=== PATIENT | female | born 1960 | race Caucasian/White ===

== ENCOUNTER 2017-03-28 12:11 | Inpatient (IN) | payer OTHER, MEDICARE ==
[~2017-03-28] VITALS: Ht 152.4 cm; Wt 40.6 kg
[2017-03-28] VITALS (9 sets, daily range): BP systolic 130–194; BP diastolic 58–101; PULSE 64–74; RESP 18–20; TEMP 96–98.3; O2SAT 94–97
[~2017-03-28 12:11] MED LIST: ADVA500A INH; CARV6.252 PO; DICL75 PO; LISI-363 PO; NITR0.4S SL; TRAM50TA PO; VENTAER INH
--- NOTE | 2017-03-28 12:39 | PD ---
HPI Chief Complaint: Abdominal Pain Time Seen by Provider: 12:38 Travel History International Travel<30 days: No Contact w/Intl Traveler<30days: No Traveled to known affect area: No History of Present Illness HPI 56-year-old female came to the emergency room with 4 days history of epigastric pain. Patient says she has been vomiting as well. She says that the pain has been keeping her up at night and she can take it anymore. She has history of extensive abdominal surgeries in the past including colectomy and reverse colostomy. She seemed uncomfortable. Vital signs were stable. The pain waxes and wanes but is there all throughout the time. Currently her pain is 8 out of 10. No Radiation of the pain. No history of diarrhea. She did have a bowel movement today. FOR[facility]LY [facility] Past Medical History Narrative Medical List of her past medical, surgical, social and family history is reviewed from the nursing note. Arthritis: No Asthma: Yes Heart Rhythm Problems: No Cancer: No Cardiac Catheterization: Yes Cardiovascular Problems: Yes (AICD, ANGINA) High Cholesterol: No Chest Pain: Yes Congestive Heart Failure: No COPD: Yes Cerebrovascular Accident: No Diabetes: No Endocrine: No Gastrointestinal Disorders: No GERD: Yes Genitourinary: No Hiatal Hernia: Yes Hypertension: No Immune Disorder: No Implanted Vascular Access Dvce: Yes Musculoskeletal: Yes (BACK TRAUMA/ PAIN) Neurologic: Yes (MIGRAINES) Psychiatric: No Reproductive: No Respiratory: Yes (ASTHMA) Migraines: Yes Seizures: No Sleep Apnea: Yes Thyroid Disease: No Menopausal: Yes Past Surgical History Abdominal Surgery: Yes (APPY, LAP. DANA, COLON RESECT/ COLOSTOMY) AICD: Yes (AICD 2009, [address] [employer]) Appendectomy: Yes Arteriovenous Shunt: No Body Medical Devices: HARDWARE RIGHT HUMERUS Cardiac Surgery: Yes (AICD) Cholecystectomy: Yes Coronary Artery Bypass Graft: No Coronary Stent: Yes (ONE STENT 06/05) Ear Surgery: No Endocrine Surgery: No Eye Surgery: No Genitourinary Surgery: No Gynecologic Surgery: Yes (TAHBSO) Hysterectomy: Yes Insulin Pump: No Joint Replacement: No Oral Surgery: No Pacemaker: No Thoracic Surgery: No Other Surgery: Yes Social History Alcohol Use: No Tobacco Use: No (quit 2 years ago, smoked 1 ppd for 30 years) Substance Use: No Allergies-Medications (Allergen,Severity, Reaction): Coded Allergies: doxycycline (Unverified Allergy, Severe, 03/28/17) erythromycin base (Unverified Allergy, Severe, 03/28/17) haloperidol (Unverified Allergy, Severe, 03/28/17) minocycline (Unverified Allergy, Severe, 03/28/17) pantoprazole (Unverified Allergy, Severe, Dyspepsia, 03/28/17) ONLY FOR DOSES UNDER 40 MG tigecycline (Unverified Allergy, Severe, 03/28/17) ranolazine (Unverified Adverse Reaction, Severe, severe constipation, 03/28) Comments List of her allergies reviewed from the nursing note. Reported Meds & Prescriptions Reported Meds & Active Scripts Active Reported Ventolin Hfa 18 GM Inh (Albuterol Sulfate) 90 Mcg/Act Aer 1 Puff INH Q4H PRN Fosamax (Alendronate Sodium) 70 Mg Tab Unknown Dose PO Q7D Promethazine (Promethazine HCl) 12.5 Mg Tab 12.5 Mg PO Q4H PRN Tramadol (Tramadol HCl) 50 Mg Tab 50 Mg PO DAILY Lisinopril 20 Mg Tab 20 Mg PO DAILY Carvedilol 3.125 Mg Tab Unknown Dose PO BID Duoneb (Ipratropium-Albuterol Neb) 0.5-2.5 Mg/3 Ml Neb 1 Nebule INH DAILY Advair Diskus Inh (Fluticasone-Salmeterol Inh) 100-50 Mcg/Blist Aer 1 Puff INH BID Rinse mouth after use. Narrative Medication List of her home medications reviewed from the nursing note. Review of Systems Except as stated in HPI: all other systems reviewed are Neg Gastrointestinal: Positive: Nausea, Vomiting, Abdominal Pain Physical Exam Narrative GENERAL: Awake, alert, moderate distress, emaciated SKIN: Focused skin assessment warm/dry. HEAD: Atraumatic. Normocephalic. EYES: Pupils equal and round. No scleral icterus. No injection or drainage. ENT: No nasal bleeding or discharge. Mucous membranes pink and moist. NECK: Trachea midline. No JVD. CARDIOVASCULAR: Regular rate and rhythm. No murmur appreciated. RESPIRATORY: No accessory muscle use. Clear to auscultation. Breath sounds equal bilaterally. GASTROINTESTINAL: Abdomen soft, tender in the epigastric area, nondistended. Tingling bowel sounds. Hepatic and splenic margins not palpable. MUSCULOSKELETAL: No obvious deformities. No clubbing. No cyanosis. No edema. NEUROLOGICAL: Awake and alert. No obvious cranial nerve deficits. Motor grossly within normal limits. Normal speech. PSYCHIATRIC: Appropriate mood and affect; insight and judgment normal. Data Data Last Documented VS Vital Signs Date Time Temp Pulse Resp B/P (MAP) Pulse Ox O2 Delivery O2 Flow Rate FiO2 03/28/17 14:07 67 20 155/65 (95) 94 03/28/17 12:17 98.3 Orders Orders Complete Blood Count With Diff (03/28/17 12:43) Comprehensive Metabolic Panel (03/28/17 12:43) Lipase (03/28/17 12:43) Urinalysis - C+S If Indicated (03/28/17 12:43) Ct Abd/Pel W Iv Contrast(Rout) (03/28/17 12:43) Iv Access Insert/Monitor (03/28/17 12:43) Ecg Monitoring (03/28/17 12:43) Oximetry (03/28/17 12:43) Morphine Inj (Morphine Inj) (03/28/17 12:45) Ondansetron Inj (Zofran Inj) (03/28/17 12:45) Sodium Chlor 0.9% 1000 Ml Inj (Ns 1000 M (03/28/17 12:43) Sodium Chloride 0.9% Flush (Ns Flush) (03/28/17 12:45) Oral Contrast - Adult (03/28/17 12:49) Diatrizoate Liq ( Gastroview Liq) (03/28/17 12:55) Iohexol 350 Inj (Omnipaque 350 Inj) (03/28/17 14:01) Morphine Inj (Morphine Inj) (03/28/17 14:45) Insert Ng Tube (03/28/17 14:50) Lidocaine 2% Jelly (Xylocaine 2% Jelly) (03/28/17 15:30) Admit Order (Ed Use Only) (03/28/17 15:18) Admit To Inpatient (03/28/17 ) Vital Signs (Adult) Q4H (03/28/17 15:17) Activity Oob With Assistance (03/28/17 15:17) [employer] Inspector / Telemetry .CONTINUOUS (03/28/17 15:17) Intake + Output JOYA.QSHIFT (03/28/17 15:17) Diet Npo (03/28/17 Dinner) Sodium Chloride 0.9% Flush (Ns Flush) (03/28/17 15:30) Sodium Chloride 0.9% Flush (Ns Flush) (03/28/17 21:00) Acetaminophen (Tylenol) (03/28/17 15:30) Ondansetron Inj (Zofran Inj) (03/28/17 15:30) Basic Metabolic Panel (Bmp) (03/29/17 06:00) Complete Blood Count With Diff (03/29/17 06:00) Resp Oxygen Armani C Titrat 1-4 L (03/28/17 ) Naloxone Inj (Narcan Inj) (03/28/17 15:30) Morphine Inj (Morphine Inj) (03/28/17 15:30) Consult General Surgery (03/28/17 ) Chest, Single Ap (03/28/17 ) Labs Laboratory Tests Test 03/28/17 12:50 03/28/17 14:25 White Blood Count 7.4 TH/MM3 Red Blood Count 5.17 MIL/MM3 Hemoglobin 15.2 GM/DL Hematocrit 46.0 % Mean Corpuscular Volume 89.0 FL Mean Corpuscular Hemoglobin 29.4 PG Mean Corpuscular Hemoglobin Concent 33.0 % Red Cell Distribution Width 13.4 % Platelet Count 127 TH/MM3 Mean Platelet Volume 8.8 FL Neutrophils (%) (Auto) 58.1 % Lymphocytes (%) (Auto) 26.9 % Monocytes (%) (Auto) 8.1 % Eosinophils (%) (Auto) 5.8 % Basophils (%) (Auto) 1.1 % Neutrophils # (Auto) 4.3 TH/MM3 Lymphocytes # (Auto) 2.0 TH/MM3 Monocytes # (Auto) 0.6 TH/MM3 Eosinophils # (Auto) 0.4 TH/MM3 Basophils # (Auto) 0.1 TH/MM3 CBC Comment DIFF FINAL Differential Comment Blood Urea Nitrogen 14 MG/DL Creatinine 0.83 MG/DL Random Glucose 105 MG/DL Total Protein 7.2 GM/DL Albumin 3.3 GM/DL Calcium Level 8.8 MG/DL Alkaline Phosphatase 100 U/L Aspartate Amino Transf (AST/SGOT) 24 U/L Alanine Aminotransferase (ALT/SGPT) 26 U/L Total Bilirubin 0.3 MG/DL Sodium Level 140 MEQ/L Potassium Level 3.9 MEQ/L Chloride Level 107 MEQ/L Carbon Dioxide Level 27.6 MEQ/L Anion Gap 5 MEQ/L Estimat Glomerular Filtration Rate 71 ML/MIN Lipase 513 U/L Urine Collection Type CLEAN CATCH Urine Color YELLOW Urine Turbidity CLEAR Urine pH 6.5 Urine Specific [place] 1.021 Urine Protein NEG mg/dL Urine Glucose (UA) NEG mg/dL Urine Ketones NEG mg/dL Urine Occult Blood NEG Urine Nitrite NEG Urine Bilirubin NEG Urine Leukocyte Esterase NEG Urine WBC 0-2 /hpf Urine Squamous Epithelial Cells > 8 /hpf Microscopic Urinalysis Comment CULT NOT INDICATED Urine Collection Time 14:25 MDM Medical Decision Making Medical Screen Exam Complete: Yes Emergency Medical Condition: Yes Medical Record Reviewed: Yes Differential Diagnosis Small bowel obstruction, acute cholecystitis, acute gastritis, abdominal pain NOS, acute pancreatitis Narrative Course 2:17 PM blood test results of back and lipase is mildly elevated. Blood test results are otherwise within acceptable limits. Patient was given IV pain medication and fluid. CT scan is done. Awaiting for her to be read by the radiologist. 3:[address] scan shows usually distended stomach which as per the radiologist could be gastroparesis versus gastric outlet obstruction. Patient is not a diabetic. I opinion this seems more like gastric outlet obstruction. I inserted an NG tube and spoke with Dr. Chirinos from colorectal surgery who is covering for Dr. Pérez. I discussed the CT scan with her and as per her this is more of a general surgery territory. I discussed it with Dr. Rae from general surgery who agreed with the treatment and admission. He wants the patient to be admitted under medical service. I discussed with the hospitalist was accepted the case. After I inserted the NG tube chest x-ray has been ordered. Patient tolerated the procedure well. Please refer to my procedure note. Procedures Procedure Narrative Nasogastric tube insertion: Patient was given 2% lidocaine gel into the right nostril. 14 [place] NG tube was inserted by me. Once it had red decreased the desired length air was insufflated to check for placement. Good gush of air was heard in the epigastric region. Chest x-ray has been ordered to confirm placement. Patient tolerated the procedure well. EKG Prior to Arrival: No Physician Communication Physician Communication Dr. Chirinos, Dr. Rae Diagnosis Primary Impression: Abdominal pain Qualified Codes: R10.13 - Epigastric pain Additional Impression: Gastric outlet obstruction Admitting Information Admitting Physician Requests: Admit Adia Liu MD Mar 28, 2017 12:39
[2017-03-28] MEDS ORDERED: CARV3.12 PO (12:41)
[2017-03-28] MEDS ORDERED: VENTAER INH (12:41)
[2017-03-28] MEDS ORDERED: FOSA70TA PO (12:41)
[2017-03-28] MEDS ORDERED: TRAM50TA PO (12:41)
[2017-03-28] MEDS ORDERED: LISI-515 PO (12:41)
[2017-03-28] MEDS ORDERED: PROM12.54 PO (12:41)
[2017-03-28] MEDS ORDERED: ADVA100A INH (12:41)
[2017-03-28] MEDS ORDERED: IPRASOL INH (12:41)
[2017-03-28] MEDS ORDERED: SODIUM CHLOR 0.9% 1000 ML INJ 1,000 ML IV SCH (12:43)
[2017-03-28] MEDS ORDERED: SODIUM CHLORIDE 0.9% FLUSH 10 ML FLUSH IV FLUSH PRN ×2 (12:45→15:30)
[2017-03-28] MEDS ORDERED: ONDANSETRON HCL 4 MG/2 ML VIAL IVP ONE (12:45)
[2017-03-28] MEDS ORDERED: MORPHINE SULFATE 4 MG/ML INJ IV PUSH ONE ×2 (12:45→14:45)
[2017-03-28] MEDS ORDERED: DIATRIZOATE MEGLUM/DIATRIZOATE SOD 9 ML CUP ONE (12:55)
[2017-03-28 13:00] LABS: AUTOMATED NEUTROPHIL # 4.3 TH/MM3 (1.8-7.7); BASOPHIL # 0.1 TH/MM3 (0-0.2); BASOPHIL % 1.1 % (0.0-2.0); EOSINOPHIL # 0.4 TH/MM3 (0-0.4); EOSINOPHIL % 5.8 % (0.0-4.0); HEMO FLAGS DIFF FINAL; LYMPH % 26.9 % (9.0-44.0); MEAN CORPUSCULAR HEMOGLOBIN 29.4 PG (27.0-34.0); MONO % 8.1 % (0.0-8.0); NEUT % 58.1 % (16.0-70.0); PLATELET COUNT 127 TH/MM3 (150-450); RED BLOOD COUNT 5.17 MIL/MM3 (4.00-5.30); RED CELL DISTRIBUTION WIDTH 13.4 % (11.6-17.2); WHITE BLOOD COUNT 7.4 TH/MM3 (4.0-11.0)
[2017-03-28 13:12] LABS: CHLORIDE 107 MEQ/L (98-107); POTASSIUM 3.9 MEQ/L (3.5-5.1); SODIUM (NA) 140 MEQ/L (136-145)
[2017-03-28 13:16] LABS: ANION GAP 5 MEQ/L (5-15); BICARBONATE 27.6 MEQ/L (21.0-32.0); BLOOD UREA NITROGEN 14 MG/DL (7-18)
[2017-03-28 13:19] LABS: ALT (GPT) 26 U/L (10-53); AST (GOT) 24 U/L (15-37); GLOMERULAR FILTRATION RATE 71 ML/MIN (>89)
[2017-03-28 13:20] LABS: TOTAL BILIRUBIN ADULT 0.3 MG/DL (0.2-1.0)
[2017-03-28 13:22] LABS: ALKALINE PHOSPHATASE 100 U/L (45-117)
[2017-03-28] MEDS ORDERED: IOHEXOL 350 MG/ML 10 ML VIAL (for RAD DIAG) IVCONTRAST ONE (14:01)
--- NOTE | 2017-03-28 14:41 | RADRPT ---
EXAM DATE/TIME: 03/28/2017 13:55 [facility] COMPARISON: CT ABDOMEN & PELVIS W CONTRAST, January 21, 2013, 20:13. INDICATIONS : Mid abdominal pain. IV CONTRAST: 75 cc Omnipaque 350 (iohexol) IV ORAL CONTRAST: Prescribed oral contrast ingested. RADIATION DOSE: 4.42 CTDIvol (mGy) MEDICAL HISTORY : Cardiovascular disease. Chronic obstructive pulmonary disease. Gastroesophageal reflux disease. SURGICAL HISTORY : Coronary artery stent. Appendectomy.Colostomy.Cholecystectomy. Hysterectomy. Pacemaker. ENCOUNTER: Initial ACUITY: 3 days PAIN SCALE: 6/10 LOCATION: abdomen TECHNIQUE: Volumetric scanning of the abdomen and pelvis was performed. Using automated exposure control and ad justment of the mA and/or kV according to patient size, radiation dose was kept as low as reasonably achievable to obtain optimal diagnostic quality images. DICOM format image data is available electro nically for review and comparison. FINDINGS: LOWER LUNGS: The visualized lower lungs are clear. LIVER: Homogeneous density without lesion. There is no dilation of the biliary tree. Gallbladder is surgica lly absent. SPLEEN: Normal size without lesion. PANCREAS: Within normal limits. KIDNEYS: Kidneys is asymmetrical enhancement and are symmetrical in size. Redemonstration of a small left supe rior pole renal cyst. No radiopaque renal calculi or hydronephrosis. ADRENAL GLANDS: Within normal limits. VASCULAR: Moderate to severe mixed distal aortic plaque with resultant moderate to severe distal aortic stenosi s. The iliac arteries are very small in caliber bilaterally. Celiac and SMA are grossly patent. BOWEL/MESENTERY: Moderately distended fluid-filled J-shaped stomach extending to the duodenal bulb. No definitive mass is noted at the gastric outlet. Bowel otherwise appears unremarkable with surgical staple line noted near the rectum. ABDOMINAL WALL: Within normal limits. RETROPERITONEUM: There is no lymphadenopathy. BLADDER: No wall thickening or mass. REPRODUCTIVE: Uterus is surgically absent. INGUINAL: There is no lymphadenopathy or hernia. MUSCULOSKELETAL: Within normal limits for patient age. CONCLUSION: 1. Moderately distended fluid-filled J-shaped stomach without definitive CT evidence for significant focal mass. Ingested oral contrast does extend to the distal small bowel. Differential considerations include gastroparesis versus partial gastric outlet obstruction. 2. Moderate to severe mixed distal aortic plaque with resultant moderate to severe distal aortic sten osis. Iliac arteries are very small in caliber bilaterally. 3. Otherwise, no acute CT abnormality or significant interval change from prior exam. Stable ancillar y findings, as above. Maldonado Zambrano MD on March 28, 2017 at 14:30 Board Certified Radiologist. This report was verified electronically.
[2017-03-28 14:45] LABS: BLOOD, URINE NEG (NEG); GLUCOSE,URINE NEG (NEG); KETONE, URINE NEG (NEG); NITRITE,URINE NEG (NEG); PH, URINE 6.5 (5.0-8.5)
[2017-03-28 14:47] LABS: METHOD OF COLLECTION CLEAN CATCH; URINE COLOR YELLOW (YELLW/STRAW)
[2017-03-28 14:55] LABS: COMMENT (UR) CULT NOT INDICATED; CULTURE IF INDICATED CULT NOT INDICATED; SQUAMOUS EPITHELIAL CELL URINE > 8 /hpf (0-5); WBC, URINE 0-2 /hpf (0-5)
[2017-03-28] MEDS ORDERED: ACETAMINOPHEN 325 MG TAB PO PRN (15:30)
[2017-03-28] MEDS ORDERED: NALOXONE HCL 0.4 MG/ML AMP IV PUSH PRN (15:30)
[2017-03-28] MEDS ORDERED: LIDOCAINE 2% JELLY 30 ML TUBE TOPICAL ONE (15:30)
--- NOTE | 2017-03-28 16:10 | RADRPT ---
EXAM DATE/TIME: 03/28/2017 15:43 [facility] COMPARISON: CHEST SINGLE AP, January 21, 2013, 7:42. INDICATIONS : Mid upper abdomen, lower chest pain, post NG tube MEDICAL HISTORY : Chronic obstructive pulmonary disease. Cardiovascular disease. SURGICAL HISTORY : Pacemaker. ENCOUNTER: Subsequent ACUITY: 4 - 6 days PAIN SCORE: 10/10 LOCATION: Bilateral lower chest middle FINDINGS: Stable multilead AICD in place. Nasogastric catheter with tip in the stomach. Lungs are hyper aerated with mild interstitial prominence. No new focal pleural or parenchymal opacities. Cardiac mediastina l contours are within normal limits. Left humeral intramedullary silvino. Remainder of the exam is unchan ged. CONCLUSION: 1. NGT in the stomach. 2. Changes of obstructive pulmonary disease without acute abnormality. Maldonado Zambrano MD on March 28, 2017 at 16:06 Board Certified Radiologist. This report was verified electronically.
[2017-03-28] MEDS: SODIUM CHLOR 0.9% 1000 ML INJ 1,000 ML IV SCH (18:52)
[2017-03-28] MEDS: SODIUM CHLORIDE 0.9% FLUSH 10 ML FLUSH IV FLUSH SCH (20:17)
[2017-03-28] MEDS: MORPHINE SULFATE 4 MG/ML INJ IV PUSH PRN (20:29)
[2017-03-29] VITALS (8 sets, daily range): BP systolic 127–154; BP diastolic 61–76; PULSE 59–72; RESP 15–20; TEMP 96.1–97.2; O2SAT 91–96
[2017-03-29] MEDS: SODIUM CHLOR 0.9% 1000 ML INJ 1,000 ML IV SCH ×3 (03:21→23:16)
[2017-03-29 06:46] LABS: BASOPHIL % 0.3 % (0.0-2.0); EOSINOPHIL # 0.4 TH/MM3 (0-0.4); EOSINOPHIL % 5.1 % (0.0-4.0); HEMATOCRIT 44.8 % (35.0-46.0); LYMPH % 17.9 % (9.0-44.0); LYMPHOCYTE # 1.3 TH/MM3 (1.0-4.8); MEAN CELL VOLUME 89.4 FL (80.0-100.0); MEAN CORPUSCULAR HEMOGLOBIN 29.7 PG (27.0-34.0); MEAN CORPUSCULAR HGB CONC 33.2 % (32.0-36.0); MONO % 8.9 % (0.0-8.0); NEUT % 67.8 % (16.0-70.0); PLATELET COUNT 92 TH/MM3 (150-450); RED BLOOD COUNT 5.01 MIL/MM3 (4.00-5.30); RED CELL DISTRIBUTION WIDTH 13.2 % (11.6-17.2); WHITE BLOOD COUNT 7.4 TH/MM3 (4.0-11.0)
[2017-03-29 06:49] LABS: HEMO FLAGS AUTO DIFF
[2017-03-29 06:52] LABS: POTASSIUM 3.7 MEQ/L (3.5-5.1)
--- NOTE | 2017-03-29 06:52 | RADRPT ---
EXAM DATE/TIME: 03/29/2017 06:15 [facility] COMPARISON: CT ABDOMEN & PELVIS W CONTRAST, March 28, 2017, 13:55. INDICATIONS : Distention. MEDICAL HISTORY : Cardiovascular disease. Chronic obstructive pulmonary disease. Gastroesophageal reflux disease. SURGICAL HISTORY : Appendectomy. Colostomy. Cholecystectomy. Hysterectomy. ENCOUNTER: Subsequent ACUITY: 2 days PAIN SCORE: 4/10 LOCATION: abdomen, all quadrants. FINDINGS: A single AP supine view of the abdomen and pelvis was obtained and demonstrates a nasogastric tube in place with the tip projected over the proximal stomach. There are surgical clips in the right upper quadrant consistent with prior cholecystectomy. Oral contrast from the CT is now noted in the colon. This is nondistended. There is no evidence of free air or mass effect on this supine study. The bony structures remain intact. The lung bases appear clear and overpenetrated. CONCLUSION: 1. Contrast is now noted in the colon excluding complete or high-grade small bowel obstruction. 2. No evidence of free air. Status post cholecystectomy. 3. Nelson Cantor MD on March 29, 2017 at 6:48 Board Certified Radiologist. This report was verified electronically.
[2017-03-29 07:00] LABS: BICARBONATE 23.8 MEQ/L (21.0-32.0)
[2017-03-29 07:16] LABS: SCAN/DIFF AUTO DIFF CONFIRMED
[2017-03-29] MEDS: SODIUM CHLORIDE 0.9% FLUSH 10 ML FLUSH IV FLUSH SCH ×2 (08:15→21:00)
[2017-03-29] MEDS: ONDANSETRON HCL 4 MG/2 ML VIAL IVP PRN (08:26)
[2017-03-29] MEDS: MORPHINE SULFATE 4 MG/ML INJ IV PUSH PRN ×2 (08:26→20:19)
[2017-03-29] MEDS ORDERED: BENZOCAINE 6 MG/MENTHOL 10 MG LOZENGE BUCCAL PRN (08:30)
--- NOTE | 2017-03-29 09:50 | PD.CONS ---
cc: Marquise Rae MD HPI Service General Surgery Consult Requested By Dr. Liu Reason for Consult Gastric outlet obstruction Primary Care Physician Jhonathan Stauffer MD History of Present Illness This is a 56 year old female with a past medical history of asthma, cardiac catheterization,migraines, insomnia, shoulder injury and colon resection by Dr. Pérez. The patient started having epigastric pain with associated nausea and vomiting about 4 days prior to arrival to the ED. A CT abdomen pelvis was obtained which showed a distended stomach with a question of gastroparesis or a partial gastric outlet obstruction. In the ED, an NGT was placed to LIWS with minimal output but relief of nausea. A General Surgery consultation has been requested. Review of Systems Constitutional: DENIES: Fever, Chills Endocrine: DENIES: Polydipsia, Polyuria, Polyphagia Eyes: DENIES: Eye inflammation Respiratory: DENIES: Cough Cardiovascular: DENIES: Chest pain Gastrointestinal: COMPLAINS OF: Abdominal pain, Nausea, Vomiting Genitourinary: DENIES: Urinary frequency Musculoskeletal: DENIES: Joint pain Integumentary: DENIES: Abnormal pigmentation Hematologic/lymphatic: DENIES: Bruising Immunologic/allergic: DENIES: Eczema Neurologic: DENIES: Abnormal gait, Headache Psychiatric: DENIES: Confusion, Mood changes, Depression Past Family Social History Past Medical History Asthma Cardiac catheterization migraines insomnia shoulder injury Sterkel ulcer Past Surgical History AICD Appendectomy laparoscopic cholecystectomy colon resection with colostomy for Sterkel ulcer RIGHT hummers repair Reported Medications Promethazine DuoNeb Ventolin Coreg Lisinopril Tramadol Advair Fosamax Allergies: Coded Allergies: doxycycline (Unverified Allergy, Severe, 03/28/17) erythromycin base (Unverified Allergy, Severe, 03/28/17) haloperidol (Unverified Allergy, Severe, 03/28/17) minocycline (Unverified Allergy, Severe, 03/28/17) pantoprazole (Unverified Allergy, Severe, Dyspepsia, 03/28/17) ONLY FOR DOSES UNDER 40 MG tigecycline (Unverified Allergy, Severe, 03/28/17) ranolazine (Unverified Adverse Reaction, Severe, severe constipation, 03/28) Active Ordered Medications Current Medications Medications (Trade) Dose Ordered Sig/Jarocho Route Start Time Stop Time Status Last Admin (NS Flush) 2 ml UNSCH PRN IV FLUSH 03/28/17 15:30 (NS Flush) 2 ml BID IV FLUSH 03/28/17 21:00 (Tylenol) 650 mg Q4H PRN PO 03/28/17 15:30 (Zofran Inj) 4 mg Q6H PRN IVP 03/28/17 15:30 03/29/17 08:26 (Narcan Inj) 0.4 mg UNSCH PRN IV PUSH 03/28/17 15:30 (Morphine Inj) 4 mg Q15M PRN IV PUSH 03/28/17 15:30 03/29/17 08:26 Sodium Chloride 1,000 ml @ 100 mls/hr Q10H IV 03/28/17 16:00 03/29/17 03:21 (Chloraseptic Carolann) 1 lozenge UNSCH PRN BUCCAL 03/29/17 08:30 Family History Noncontributory Social History Denies tobacco use Denies ETOH use Denies illicit drug use Physical Exam Vital Signs Vital Signs Date Time Temp Pulse Resp B/P (MAP) Pulse Ox O2 Delivery O2 Flow Rate FiO2 03/29/17 09:00 96.4 67 15 137/76 (96) 96 03/29/17 08:00 59 03/29/17 08:00 96 21 03/29/17 04:00 96.5 72 20 132/61 (84) 94 03/29/17 00:00 97.2 67 20 129/62 (84) 91 03/28/17 20:50 94 21 03/28/17 20:00 96.0 66 20 161/87 (111) 95 03/28/17 20:00 64 03/28/17 18:09 97 03/28/17 16:45 96.5 69 18 154/101 (118) 97 03/28/17 16:44 03/28/17 15:33 66 20 194/89 (124) 97 03/28/17 14:07 67 20 155/65 (95) 94 03/28/17 13:04 68 20 130/58 (82) 95 03/28/17 12:53 96 03/28/17 12:17 98.3 74 20 169/72 (104 96 Physical Exam GENERAL: Thin 56 year old female resting in bed in no acute distress. SKIN: Warm and dry. HEAD: Atraumatic. Normocephalic. EYES: Pupils equal and round. No scleral icterus. No injection or drainage. ENT: No nasal bleeding or discharge. Mucous membranes pink and moist. NECK: Trachea midline. CARDIOVASCULAR: Regular rate and rhythm. RESPIRATORY: No accessory muscle use. Clear to auscultation. Breath sounds equal bilaterally. GASTROINTESTINAL: Abdomen soft, non-tender, nondistended. Abdomen is flat. Multiple well healed scars on abdomen. No obvious hernias. MUSCULOSKELETAL: Extremities without clubbing, cyanosis, or edema. No obvious deformities. NEUROLOGICAL: Awake and alert. No obvious cranial nerve deficits. Motor grossly within normal limits. Five out of 5 muscle strength in the arms and legs. Normal speech. PSYCHIATRIC: Appropriate mood and affect; insight and judgment normal. Laboratory Laboratory Tests Test 03/28/17 12:50 03/28/17 14:25 03/29/17 05:50 White Blood Count 7.4 7.4 Red Blood Count 5.17 5.01 Hemoglobin 15.2 14.9 Hematocrit 46.0 44.8 Mean Corpuscular Volume 89.0 89.4 Mean Corpuscular Hemoglobin 29.4 29.7 Mean Corpuscular Hemoglobin Concent 33.0 33.2 Red Cell Distribution Width 13.4 13.2 Platelet Count 127 92 Mean Platelet Volume 8.8 8.7 Neutrophils (%) (Auto) 58.1 67.8 Lymphocytes (%) (Auto) 26.9 17.9 Monocytes (%) (Auto) 8.1 8.9 Eosinophils (%) (Auto) 5.8 5.1 Basophils (%) (Auto) 1.1 0.3 Neutrophils # (Auto) 4.3 5.0 Lymphocytes # (Auto) 2.0 1.3 Monocytes # (Auto) 0.6 0.7 Eosinophils # (Auto) 0.4 0.4 Basophils # (Auto) 0.1 0.0 CBC Comment DIFF FINAL AUTO DIFF Differential Comment AUTO DIFF CONFIRMED Blood Urea Nitrogen 14 8 Creatinine 0.83 0.58 Random Glucose 105 92 Total Protein 7.2 Albumin 3.3 Calcium Level 8.8 7.8 Alkaline Phosphatase 100 Aspartate Amino Transf (AST/SGOT) 24 Alanine Aminotransferase (ALT/SGPT) 26 Total Bilirubin 0.3 Sodium Level 140 142 Potassium Level 3.9 3.7 Chloride Level 107 111 Carbon Dioxide Level 27.6 23.8 Anion Gap 5 7 Estimat Glomerular Filtration Rate 71 107 Lipase 513 Urine Collection Type CLEAN CATCH Urine Color YELLOW Urine Turbidity CLEAR Urine pH 6.5 Urine Specific [place] 1.021 Urine Protein NEG Urine Glucose (UA) NEG Urine Ketones NEG Urine Occult Blood NEG Urine Nitrite NEG Urine Bilirubin NEG Urine Leukocyte Esterase NEG Urine WBC 0-2 Urine Squamous Epithelial Cells > 8 Microscopic Urinalysis Comment CULT NOT INDICATED Urine Collection Time 14:25 Result Diagram: 03/29/17 0550 03/29/17 0550 Imaging Last 48 hours Impressions Abdomen X-Ray 03/29/17 0600 Signed Impressions: Service Date/Time: Wednesday, March 29, 2017 06:15 - CONCLUSION: 1. Contrast is now noted in the colon excluding complete or high-grade small bowel obstruction. 2. No evidence of free air. Status post cholecystectomy. 3. Nelson Cantor MD Abdomen/Pelvis CT 03/28/17 1243 Signed Impressions: Service Date/Time: Tuesday, March 28, 2017 13:55 - CONCLUSION: 1. Moderately distended fluid-filled J-shaped stomach without definitive CT evidence for significant focal mass. Ingested oral contrast does extend to the distal small bowel. Differential considerations include gastroparesis versus partial gastric outlet obstruction. 2. Moderate to severe mixed distal aortic plaque with resultant moderate to severe distal aortic stenosis. Iliac arteries are very small in caliber bilaterally. 3. Otherwise, no acute CT abnormality or significant interval change from prior exam. Stable ancillary findings, as above. Maldonado Zambrano MD Chest X-Ray 03/28/17 0000 Signed Impressions: Service Date/Time: Tuesday, March 28, 2017 15:43 - CONCLUSION: 1. NGT in the stomach. 2. Changes of obstructive pulmonary disease without acute abnormality. Maldonado Zambrano MD Assessment and Plan Assessment and Plan 56 year old female with abdominal pain, nausea and vomiting; CT abdomen/pelvis suggestive of partial gastric outlet obstruction -Recommend GI consult for possible EGD -Clamp NGT; check residuals -PPI BID -KUB shows contrast through to the colon -Thank you for this consult; We will continue to follow Discussed Condition With Erica Lopez Dr., Ms. Mar 29, 2017 09:50
--- NOTE | 2017-03-29 12:26 | HHI.HP ---
HPI Service [facility] Primary Care Physician Jhonathan Stauffer MD Admission Diagnosis Gastric outlet obstruction, abdominal pain Diagnoses: (1) Gastric outlet obstruction (2) Abdominal pain Chief Complaint: Abdominal pain Constipation Travel History International Travel<30 Days: No Contact w/Intl Traveler <30 Da: No Traveled to Known Affected Are: No History of Present Illness Written by Martha Jones, acting as scribe for Dr. Ross on 03/29/17 at 12:08. Ms. Qureshi is a 56-year-old female patient with a known medical history of asthma , history of colectomy and reverse colostomy who presented to the ED with complaints of abdominal pain. Patient states that the pain started roughly 4 days ago that was located in her epigastric area, severity was 8/10, with associated nausea and vomiting. Does admit to subjective fevers and chills. Last BM was 1 week ago. States she suffers from chronic constipation. Denies any recent diarrhea. Denies any hematochezia. Does follow with Dr. Pérez, has previously underwent a colectomy and reverse colostomy due to Sterkal ulcer. Does not have a instrumentation designer she follows with. CT abdomen was performed in the ED showing distended stomach. General surgery and GI have been consulted , appreciate input. Review of Systems Constitutional: COMPLAINS OF: Fever, Chills Respiratory: DENIES: Cough Cardiovascular: DENIES: Chest pain Gastrointestinal: COMPLAINS OF: Abdominal pain, Constipation, Nausea, Vomiting , DENIES: Diarrhea Hematologic/lymphatic: DENIES: Bruising Psychiatric: COMPLAINS OF: Anxiety Except as stated in HPI: all other systems reviewed are Neg Past Family Social History Past Medical History Asthma CAD with AICD placement GERD History of bowel obstruction with colectomy and reverse colostomy Past Surgical History History of bowel obstruction with colectomy and reverse colostomy Appendectomy Right humerus hardware Cholecystectomy Hysterectomy Reported Medications Reported Meds & Active Scripts Active Reported Ventolin Hfa 18 GM Inh (Albuterol Sulfate) 90 Mcg/Act Aer 1 Puff INH Q4H PRN Fosamax (Alendronate Sodium) 70 Mg Tab Unknown Dose PO Q7D Promethazine (Promethazine HCl) 12.5 Mg Tab 12.5 Mg PO Q4H PRN Tramadol (Tramadol HCl) 50 Mg Tab 50 Mg PO DAILY Lisinopril 20 Mg Tab 20 Mg PO DAILY Carvedilol 3.125 Mg Tab Unknown Dose PO BID Duoneb (Ipratropium-Albuterol Neb) 0.5-2.5 Mg/3 Ml Neb 1 Nebule INH DAILY Advair Diskus Inh (Fluticasone-Salmeterol Inh) 100-50 Mcg/Blist Aer 1 Puff INH BID Rinse mouth after use. Allergies: Coded Allergies: doxycycline (Unverified Allergy, Severe, 03/28/17) erythromycin base (Unverified Allergy, Severe, 03/28/17) haloperidol (Unverified Allergy, Severe, 03/28/17) minocycline (Unverified Allergy, Severe, 03/28/17) pantoprazole (Unverified Allergy, Severe, Dyspepsia, 03/28/17) ONLY FOR DOSES UNDER 40 MG tigecycline (Unverified Allergy, Severe, 03/28/17) ranolazine (Unverified Adverse Reaction, Severe, severe constipation, 03/28) Active Ordered Medications Current Medications Medications (Trade) Dose Ordered Sig/Jarocho Route Start Time Stop Time Status Last Admin (NS Flush) 2 ml UNSCH PRN IV FLUSH 03/28/17 15:30 (NS Flush) 2 ml BID IV FLUSH 03/28/17 21:00 (Tylenol) 650 mg Q4H PRN PO 03/28/17 15:30 (Zofran Inj) 4 mg Q6H PRN IVP 03/28/17 15:30 03/29/17 08:26 (Narcan Inj) 0.4 mg UNSCH PRN IV PUSH 03/28/17 15:30 (Morphine Inj) 4 mg Q15M PRN IV PUSH 03/28/17 15:30 03/29/17 08:26 Sodium Chloride 1,000 ml @ 100 mls/hr Q10H IV 03/28/17 16:00 03/29/17 03:21 (Chloraseptic Carolann) 1 lozenge UNSCH PRN BUCCAL 03/29/17 08:30 Family History Denies any significant family medical history. Social History Denies any current tobacco, alcohol or illicit drug use. Physical Exam Vital Signs Vital Signs Date Time Temp Pulse Resp B/P (MAP) Pulse Ox O2 Delivery O2 Flow Rate FiO2 03/29/17 09:00 96.4 67 15 137/76 (96) 96 03/29/17 08:00 59 03/29/17 08:00 96 21 03/29/17 04:00 96.5 72 20 132/61 (84) 94 03/29/17 00:00 97.2 67 20 129/62 (84) 91 03/28/17 20:50 94 21 03/28/17 20:00 96.0 66 20 161/87 (111) 95 03/28/17 20:00 64 03/28/17 18:09 97 03/28/17 16:45 96.5 69 18 154/101 (118) 97 03/28/17 16:44 03/28/17 15:33 66 20 194/89 (124) 97 03/28/17 14:07 67 20 155/65 (95) 94 03/28/17 13:04 68 20 130/58 (82) 95 03/28/17 12:53 96 03/28/17 12:17 98.3 74 20 169/72 (104) 96 Physical Exam GENERAL: This is a well-developed, thin appearing female patient, sitting up in bed in no apparent distress. SKIN: No rashes, ecchymoses or lesions. Warm and dry. HEENT: Atraumatic. Normocephalic. Pupils equal round and reactive. Extraocular motions intact. No scleral icterus. No injection or drainage. Nose without bleeding. Throat without erythema, tonsillar hypertrophy or exudate. Uvula midline. Airway patent. NECK: Trachea midline. No JVD. Supple. CARDIOVASCULAR: Regular rate and rhythm without murmurs, gallops, or rubs. RESPIRATORY: Clear to auscultation. Breath sounds equal bilaterally. No wheezes , rales, or rhonchi. GASTROINTESTINAL: Abdomen soft, non-tender, nondistended. No guarding. NGT in place and clamped. Active BS x 4 q. MUSCULOSKELETAL: Extremities without clubbing, cyanosis, or edema. No joint tenderness, effusion, or edema noted NEUROLOGICAL: Awake and alert. Cranial nerves II through XII intact. Motor and sensory grossly within normal limits. Five out of 5 muscle strength in all muscle groups. Normal speech. Laboratory Laboratory Tests Test 03/28/17 12:50 03/28/17 14:25 03/29/17 05:50 White Blood Count 7.4 7.4 Red Blood Count 5.17 5.01 Hemoglobin 15.2 14.9 Hematocrit 46.0 44.8 Mean Corpuscular Volume 89.0 89.4 Mean Corpuscular Hemoglobin 29.4 29.7 Mean Corpuscular Hemoglobin Concent 33.0 33.2 Red Cell Distribution Width 13.4 13.2 Platelet Count 127 92 Mean Platelet Volume 8.8 8.7 Neutrophils (%) (Auto) 58.1 67.8 Lymphocytes (%) (Auto) 26.9 17.9 Monocytes (%) (Auto) 8.1 8.9 Eosinophils (%) (Auto) 5.8 5.1 Basophils (%) (Auto) 1.1 0.3 Neutrophils # (Auto) 4.3 5.0 Lymphocytes # (Auto) 2.0 1.3 Monocytes # (Auto) 0.6 0.7 Eosinophils # (Auto) 0.4 0.4 Basophils # (Auto) 0.1 0.0 CBC Comment DIFF FINAL AUTO DIFF Differential Comment AUTO DIFF CONFIRMED Blood Urea Nitrogen 14 8 Creatinine 0.83 0.58 Random Glucose 105 92 Total Protein 7.2 Albumin 3.3 Calcium Level 8.8 7.8 Alkaline Phosphatase 100 Aspartate Amino Transf (AST/SGOT) 24 Alanine Aminotransferase (ALT/SGPT) 26 Total Bilirubin 0.3 Sodium Level 140 142 Potassium Level 3.9 3.7 Chloride Level 107 111 Carbon Dioxide Level 27.6 23.8 Anion Gap 5 7 Estimat Glomerular Filtration Rate 71 107 Lipase 513 Urine Collection Type CLEAN CATCH Urine Color YELLOW Urine Turbidity CLEAR Urine pH 6.5 Urine Specific [place] Gap 1.021 Urine Protein NEG Urine Glucose (UA) NEG Urine Ketones NEG Urine Occult Blood NEG Urine Nitrite NEG Urine Bilirubin NEG Urine Leukocyte Esterase NEG Urine WBC 0-2 Urine Squamous Epithelial Cells > 8 Microscopic Urinalysis Comment CULT NOT INDICATED Urine Collection Time 14:25 Result Diagram: 03/29/17 0550 03/29/17 0550 Imaging Last Impressions Abdomen X-Ray 03/29/17 0600 Signed Impressions: Service Date/Time: Wednesday, March 29, 2017 06:15 - CONCLUSION: 1. Contrast is now noted in the colon excluding complete or high-grade small bowel obstruction. 2. No evidence of free air. Status post cholecystectomy. 3. Nelson Cantor MD Abdomen/Pelvis CT 03/28/17 1243 Signed Impressions: Service Date/Time: Tuesday, March 28, 2017 13:55 - CONCLUSION: 1. Moderately distended fluid-filled J-shaped stomach without definitive CT evidence for significant focal mass. Ingested oral contrast does extend to the distal small bowel. Differential considerations include gastroparesis versus partial gastric outlet obstruction. 2. Moderate to severe mixed distal aortic plaque with resultant moderate to severe distal aortic stenosis. Iliac arteries are very small in caliber bilaterally. 3. Otherwise, no acute CT abnormality or significant interval change from prior exam. Stable ancillary findings, as above. Maldonado Zambrano MD Chest X-Ray 03/28/17 0000 Signed Impressions: Service Date/Time: Tuesday, March 28, 2017 15:43 - CONCLUSION: 1. NGT in the stomach. 2. Changes of obstructive pulmonary disease without acute abnormality. Maldonado Zambrano MD Caprini VTE Risk Assessment Caprini VTE Risk Assessment: No/Low Risk (score <= 1) Caprini Risk Assessment Model Point Value = 1 Point Value = 2 Point Value = 3 Point Value = 5 Age 41-60 Minor surgery BMI > 25 kg/m2 Swollen legs Varicose veins or History of unexplained or recurrent spontaneous Oral contraceptives or hormone replacement Sepsis (< 1 month) Serious lung disease, including pneumonia (< 1 month) Abnormal pulmonary function Acute myocardial infarction Congestive heart failure (< 1 month) History of inflammatory bowel disease Medical patient at bed rest Age 61-74 Arthroscopic surgery Major open surgery (> 45 min) Laparoscopic surgery (> 45 min) Malignancy Confined to bed (> 72 hours) Immobilizing plaster cast Central venous access Age >= 75 History of VTE Family history of VTE Factor V Leiden Prothrombin [id number] Lupus anticoagulant Anticardiolipin antibodies Elevated serum homocysteine Heparin-induced thrombocytopenia Other congenital or acquired thrombophilia Stroke (< 1 month) Elective arthroplasty Hip, pelvis, or leg fracture Acute spinal cord injury (< 1 month) Prophylaxis Regimen Total Risk Factor Score Risk Level Prophylaxis Regimen 0-1 Low Early ambulation 2 Moderate Order ONE of the following: *Sequential Compression Device (SCD) *Heparin 5000 units SQ BID 3-4 Higher Order ONE of the following medications: *Heparin 5000 units SQ TID *Enoxaparin/Lovenox 40 mg SQ daily (WT < 150 kg, CrCl > 30 mL/min) *Enoxaparin/Lovenox 30 mg SQ daily (WT < 150 kg, CrCl > 10-29 mL/min) *Enoxaparin/Lovenox 30 mg SQ BID (WT < 150 kg, CrCl > 30 mL/min) AND/OR *Sequential Compression Device (SCD) 5 or more Highest Order ONE of the following medications: *Heparin 5000 units SQ TID (Preferred with Epidurals) *Enoxaparin/Lovenox 40 mg SQ daily (WT < 150 kg, CrCl > 30 mL/min) *Enoxaparin/Lovenox 30 mg SQ daily (WT < 150 kg, CrCl > 10-29 mL/min) *Enoxaparin/Lovenox 30 mg SQ BID (WT < 150 kg, CrCl > 30 mL/min) AND *Sequential Compression Device (SCD) Assessment and Plan Problem List: (1) Gastric outlet obstruction ICD Code: K31.1 - Adult hypertrophic pyloric stenosis Status: Acute Plan: CT abdomen/pelvis showing moderately distended fluid-filled stomach. Bowel rest, NGT was placed and initially placed to LIWS. Currently now clamped and patient tolerating clear liquids without nausea or vomiting. Abdominal pain has improved after NGT placement and rest. General surgery and GI have been consulted, appreciate input and further recommendations. Control nausea, Zofran available PRN. Ensure hydration, continue NS at 100 ml/hr. Control pain, Morphine IV available PRN per pain scale. DVT prophylaxis: SCDs. Ambulation. (2) CAD (coronary artery disease) ICD Code: I25.10 - Atherosclerotic heart disease of [place] coronary artery without angina pectoris Plan: AICD In place. Continue home Lisinopril. Monitor BP trend. Continue cardiac telemetry. (3) Asthma ICD Code: J45.909 - Unspecified asthma, uncomplicated Plan: Continue home inhalers. Physician Certification 2 Midnight Certification Type: Admission for Inpatient Services Order for Inpatient Services The services are ordered in accordance with Medicare regulations or non- Medicare payer requirements, as applicable. In the case of services not specified as inpatient-only, they are appropriately provided as inpatient services in accordance with the 2-midnight benchmark. Estimated LOS (days): 2 2 days is the estimated time the patient will need to remain in the hospital, assuming treatment plan goals are met and no additional complications. Post-Hospital Plan: Home Medical Decision Making Impression and Plan This note was transcribed by danna [[email or web address]]. I, Dr. Emma Ross personally performed the history, physical exam, and medical decision making; and confirmed the accuracy of the information in the transcribed note. Authenticated by Dr. Emma Ross on 03/29/17 at 12:46. Problem Qualifiers (1) Abdominal pain: Qualified Codes: R10.13 - Epigastric pain Martha Jones Mar 29, 2017 12:26 Emma Ross MD Mar 29, 2017 13:03
[2017-03-29] MEDS ORDERED: ALBUTEROL SULFATE 90 MCG/ACT HFA 8 GM INHALER INH PRN (16:00)
--- NOTE | 2017-03-29 16:23 | PD.CONS ---
HPI History of Present Illness This is a 56 year old female who presented to the emergency room with abdominal pain on 03/28/2017. Patient notes initial pain was an 8 out of 10 associated with nausea and vomiting. She was also positive for fevers generalized malaise , and states that her last BM was 1 week ago she denies any recent bloody stools or diarrhea she has a significant history of asthma and does have some mild expiratory wheezing noted patient underwent a colectomy and a reverse colostomy due to Sterkal ulcer. She has epigastric pain continues but is more controlled last 24 hours, her NG tube is clamped since this a.m. was no acute nausea or vomiting. Patient's symptoms could be related to possible gastric outlet obstruction and/or gastritis. PFSH Past Medical History Asthma CAD with AICD placement GERD History of bowel obstruction with colectomy and reverse colostomy COPD Past Surgical History History of bowel obstruction with colectomy and reverse colostomy Appendectomy Right humerus hardware Cholecystectomy Hysterectomy Coded Allergies: doxycycline (Unverified Allergy, Severe, 03/28/17) erythromycin base (Unverified Allergy, Severe, 03/28/17) haloperidol (Unverified Allergy, Severe, 03/28/17) minocycline (Unverified Allergy, Severe, 03/28/17) pantoprazole (Unverified Allergy, Severe, Dyspepsia, 03/28/17) ONLY FOR DOSES UNDER 40 MG tigecycline (Unverified Allergy, Severe, 03/28/17) ranolazine (Unverified Adverse Reaction, Severe, severe constipation, 03/28) Medications Administered Medications Medications (Trade) Dose Ordered Sig/Jarocho Route PRN Reason Start Time Stop Time Status Last Admin Dose Admin Ondansetron HCl (Zofran Inj) 4 mg Q6H PRN IVP NAUSEA OR VOMITING 03/28/17 15:30 03/29/17 08:26 Morphine Sulfate (Morphine Inj) 4 mg Q15M PRN IV PUSH PAIN 1-10 03/28/17 15:30 03/29/17 08:26 Sodium Chloride 1,000 ml @ 100 mls/hr Q10H IV 03/28/17 16:00 03/29/17 03:21 Benzocaine/Menthol (Chloraseptic Carolann) 1 lozenge UNSCH PRN BUCCAL sore throat 03/29/17 08:30 03/29/17 12:37 Family History Denies any significant family medical history. Mother had rheumatic heart disease as child Social History Denies any current tobacco, alcohol in the last 15 years or illicit drug use. Review of Systems Constitutional: COMPLAINS OF: Fatigue Gastrointestinal: COMPLAINS OF: Abdominal pain, Nausea, Vomiting GI Exam Vitals I&O Vital Signs Date Time Temp Pulse Resp B/P (MAP) Pulse Ox O2 Delivery O2 Flow Rate FiO2 03/29/17 12:00 96.6 62 16 154/75 (101) 95 03/29/17 09:00 96.4 67 15 137/76 (96) 96 03/29/17 08:00 59 03/29/17 08:00 96 21 03/29/17 04:00 96.5 72 20 132/61 (84) 94 03/29/17 00:00 97.2 67 20 129/62 (84) 91 03/28/17 20:50 94 21 03/28/17 20:00 96.0 66 20 161/87 (111) 95 03/28/17 20:00 64 03/28/17 18:09 97 03/28/17 16:45 96.5 69 18 154/101 (118) 97 03/28/17 16:44 I/O 03/28/17 03/28/17 03/28/17 03/29/17 03/29/17 03/29/17 07:00 15:00 23:00 07:00 15:00 23:00 Intake Total 1000 ml 1099 ml 775 ml Balance 1000 ml 1099 ml 775 ml Intake Oral 90 ml IV Total 1000 ml 1099 ml 685 ml # Voids 5 # Bowel Movements 0 Laboratory Test 03/29/17 05:50 White Blood Count 7.4 TH/MM3 Red Blood Count 5.01 MIL/MM3 Hemoglobin 14.9 GM/DL Hematocrit 44.8 % Mean Corpuscular Volume 89.4 FL Mean Corpuscular Hemoglobin 29.7 PG Mean Corpuscular Hemoglobin Concent 33.2 % Red Cell Distribution Width 13.2 % Platelet Count 92 TH/MM3 Mean Platelet Volume 8.7 FL Neutrophils (%) (Auto) 67.8 % Lymphocytes (%) (Auto) 17.9 % Monocytes (%) (Auto) 8.9 % Eosinophils (%) (Auto) 5.1 % Basophils (%) (Auto) 0.3 % Neutrophils # (Auto) 5.0 TH/MM3 Lymphocytes # (Auto) 1.3 TH/MM3 Monocytes # (Auto) 0.7 TH/MM3 Eosinophils # (Auto) 0.4 TH/MM3 Basophils # (Auto) 0.0 TH/MM3 CBC Comment AUTO DIFF Differential Comment AUTO DIFF CONFIRMED Blood Urea Nitrogen 8 MG/DL Creatinine 0.58 MG/DL Random Glucose 92 MG/DL Calcium Level 7.8 MG/DL Sodium Level 142 MEQ/L Potassium Level 3.7 MEQ/L Chloride Level 111 MEQ/L Carbon Dioxide Level 23.8 MEQ/L Anion Gap 7 MEQ/L Estimat Glomerular Filtration Rate 107 ML/MIN Physical Examination HEENT: Pupils round and reactive to light; normocephalic; atraumatic; no jaundice. Oropharynx is clear, NG tube intact NECK: Neck is supple, no JVD, no lymphadenopathy. CHEST: Chest is clear to auscultation and percussion. CARDIAC: Regular rate and rhythm with no murmur gallop or rubs. ABDOMEN: Soft, nondistended, nontender to light palpation; bowel sounds are soft in all four quadrants. EXTREMITIES: No clubbing, cyanosis, or edema. Very thin body frame SKIN: Thin skin turgor; no rash; no jaundice. FLAT FINISHER: No focal deficits; alert and oriented times three., Good historian Assessment and Plan Plan Possible gastric outlet obstruction, patient has NG tube which is been clamped since 8:00 this morning without any acute nausea or vomiting. Possible resolving , 03/29/17, abd xrays show no obstruction now, Abdominal pain, improved over the past 24 hours, abdomen is benign to exam, but initially noted epigastric pain Possible gastroparesis, patient has history of bowel obstruction with colectomy with reversal colostomy, which could contribute to some of her symptoms. Possible adhesions or slowing of the colon could be complications. Nausea and vomiting, initially uncontrolled on admission now none noted. NG tube clamped since 08 100 without nausea vomiting or output. Possible gastritis, etiology unknown possible secondary to previous history of nausea and vomiting. Plan: Diet clear liquids for supper, then NPO at [facility] NG tube, Planned for endoscopy in the a.m., consents to be signed on chart, patient will be nothing by mouth at midnight Procedure was explained to patient and the fact that she would require sedation. Patient understands process We'll hold any DVT prophylaxis or blood thinners before procedure. Any further testing or plan of care will be adjusted per the findings of this hospital stay. This patient has been seen by myself and Dr. Jacobo , this note is written on his behalf Shelley Olson Mar 29, 2017 16:23
[2017-03-29] MEDS: PANTOPRAZOLE SODIUM 40 MG VIAL IV PUSH SCH (17:00)
[2017-03-29] MEDS: FAMOTIDINE 20 MG/2 ML VIAL IV PUSH SCH (17:25)
[2017-03-29] MEDS: RESP: ALBUTEROL 2.5 MG/IPRATROPIUM 0.5 MG NEB (PRN) NEB ×2 (17:39→20:26)
[2017-03-29] MEDS: RESP: ALBUTEROL 2.5 MG/IPRATROPIUM 0.5 MG NEB (SCH) NEB (20:00)
[2017-03-29] MEDS: BUDESONIDE-FORMOTEROL 80/4.5 MCG INHALER INH SCH (20:36)
[2017-03-30] VITALS: BP 152/71; PULSE 63; RESP 20; TEMP 96.8; O2SAT 95
[2017-03-30] MEDS: PANTOPRAZOLE SODIUM 40 MG VIAL IV PUSH SCH ×3 (05:00→12:49)
[2017-03-30] MEDS: FAMOTIDINE 20 MG/2 ML VIAL IV PUSH SCH (05:05)
[2017-03-30] MEDS: ONDANSETRON HCL 4 MG/2 ML VIAL IVP PRN ×2 (05:12→12:36)
--- NOTE | 2017-03-30 06:58 | HHI.PR ---
Subjective Subjective Notes ng removed, no further nausea, +bm last night, npo today Objective Vitals/I&O Vital Signs Date Time Temp Pulse Resp B/P (MAP) Pulse Ox O2 Delivery O2 Flow Rate FiO2 03/30/17 00:00 96.8 63 20 152/71 (98) 95 03/29/17 20:26 21 Radiology Last 48 hours Impressions Abdomen X-Ray 03/29/17 0600 Signed Impressions: Service Date/Time: Wednesday, March 29, 2017 06:15 - CONCLUSION: 1. Contrast is now noted in the colon excluding complete or high-grade small bowel obstruction. 2. No evidence of free air. Status post cholecystectomy. 3. Nelson Cantor MD Abdomen/Pelvis CT 03/28/17 1243 Signed Impressions: Service Date/Time: Tuesday, March 28, 2017 13:55 - CONCLUSION: 1. Moderately distended fluid-filled J-shaped stomach without definitive CT evidence for significant focal mass. Ingested oral contrast does extend to the distal small bowel. Differential considerations include gastroparesis versus partial gastric outlet obstruction. 2. Moderate to severe mixed distal aortic plaque with resultant moderate to severe distal aortic stenosis. Iliac arteries are very small in caliber bilaterally. 3. Otherwise, no acute CT abnormality or significant interval change from prior exam. Stable ancillary findings, as above. Maldonado Zambrano MD Chest X-Ray 03/28/17 0000 Signed Impressions: Service Date/Time: Tuesday, March 28, 2017 15:43 - CONCLUSION: 1. NGT in the stomach. 2. Changes of obstructive pulmonary disease without acute abnormality. Maldonado Zambrano MD Abdomen: Other (soft NT/ND, well healed scars) A/P Assessment and Plan 56 year old female with abdominal pain, nausea and vomiting; CT abdomen/pelvis suggestive of partial gastric outlet obstruction PLAN NPO for egd today with gi continue antiemetic as needed pepcid ppx await egd results continue non operative mgMarquise Henao MD Mar 30, 2017 06:58
[2017-03-30] MEDS: RESP: ALBUTEROL 2.5 MG/IPRATROPIUM 0.5 MG NEB (SCH) NEB ×3 (07:41→15:45)
[2017-03-30 07:43] VITALS: O2SAT 96
[2017-03-30 08:00] VITALS: BP 157/67; PULSE 75; RESP 18; TEMP 97.1; O2SAT 95
[2017-03-30] MEDS ORDERED: RESP: ALBUTEROL 2.5 MG/IPRATROPIUM 0.5 MG NEB (SCH) INH (08:00)
[2017-03-30] MEDS: SODIUM CHLOR 0.9% 1000 ML INJ 1,000 ML IV SCH (08:00)
[2017-03-30] MEDS: SODIUM CHLORIDE 0.9% FLUSH 10 ML FLUSH IV FLUSH SCH (08:37)
[2017-03-30] MEDS: BUDESONIDE-FORMOTEROL 80/4.5 MCG INHALER INH SCH (08:38)
[2017-03-30] MEDS ORDERED: LISINOPRIL 20 MG TAB PO SCH (09:00)
[2017-03-30 12:00] VITALS: BP 126/58; PULSE 70; RESP 18; TEMP 97.8; O2SAT 95
[2017-03-30] MEDS: MORPHINE SULFATE 4 MG/ML INJ IV PUSH PRN (12:36)
--- NOTE | 2017-03-30 13:52 | HHI.PR ---
Subjective Remarks Patient seen and examined today for follow-up on gastric outlet obstruction. Patient does have multiple concerns. She denies any abdominal pain at this time. She is concerned that she is not taking her Advair. I discussed with her that this is nonformulary and I can place an order that she can use her own medication. She does understand and is in agreement. Awaiting endoscopy for further plans. Objective Vitals Vital Signs Date Time Temp Pulse Resp B/P (MAP) Pulse Ox O2 Delivery O2 Flow Rate FiO2 03/30/17 12:00 97.8 70 18 126/58 (80) 95 03/30/17 08:00 97.1 75 18 157/67 (97) 95 03/30/17 07:43 96 21 03/30/17 00:00 96.8 63 20 152/71 (98) 95 03/29/17 20:26 96 21 03/29/17 20:00 96.1 62 20 127/62 (83) 94 03/29/17 16:00 96.9 67 15 142/73 (96) 93 I/O 03/29/17 03/29/17 03/29/17 03/30/17 03/30/17 03/30/17 07:00 15:00 23:00 07:00 15:00 23:00 Intake Total 1099 ml 775 ml 90 ml 944 ml Balance 1099 ml 775 ml 90 ml 944 ml Intake Oral 90 ml 90 ml 120 ml IV Total 1099 ml 685 ml 824 ml # Voids 5 0 4 # Bowel Movements 0 0 Result Diagram: 03/29/17 0550 03/29/17 0550 Objective Remarks GENERAL: Well-developed, well-nourished, in no acute distress. alert and orientated HEENT: Head is normocephalic without any lesions or masses noted. Facial features are symmetric. Eyes: Extraocular muscles are intact. Conjunctivae were clear. NECK: Supple without any masses. Trachea midline no deviation. No JVD CARDIAC: Regular rhythm, regular rate. S1/S2 are heard. No murmurs gallops or rubs. LUNGS: Clear to auscultation bilaterally. No wheeze, rhonchi or rales. No use of accessory muscles on inspiration or expiration. ABDOMEN: Soft, nontender. Nondistended. Bowel sounds heard in all 4 quadrants. No organomegaly or masses. Negative rebound, negative guarding. Patient does have a mid abdominal scar EXTREMITIES: No edema, pulses are equal bilaterally. No cyanosis or clubbing NEUROLOGY: Mood and affect appear appropriate. Cranial nerves II through XII grossly intact. Moving all extremities, speech is clear Urinary Catheter: No Vascular Central Line Catheter: No A/P Assessment and Plan Gastric outlet obstruction CT scan did indicate moderately distended fluid-filled J-shaped stomach, Possible gastroparesis versus gastric outlet obstruction Gen. surgery/gastroenterology consultations have been requested Awaiting endoscopy to evaluate for obstructive mass versus gastroparesis Patient was tolerating clear liquid diet Asthma Continue O2 supplementation maintain O2 sats greater 92% May use own Advair Duo nebs every 4 hours while awake and as needed Atherosclerosis with coronary artery disease Home medications continued CT scan does indicate mixed distal aortic plaque with resultant moderate to severe distal aortic stenosis Patient with no complaints of lower extremity pain or claudication She will require outpatient follow-up for the severe distal aortic stenosis. DVT prevention sequential compression devices Discharge Planning Discharge planning unclear at this time until EGD performed for further recommendations Medical Decision Making MDM Remarks The exam, history, and the medical decision-making described in the above note were completed with the assistance of the mid-level provider. I reviewed and agree with the findings presented. I attest that I had a [id number] encounter with the patient on the same day, and personally performed and documented my assessment and findings in the medical record. Patient was seen after EGD today. She is doing well. No chest pain, SOB, fever, chills. She wants to have some chicken broth. GENERAL: Alert, Oriented x 3, NAD. SKIN: Warm and dry. HEAD: Normocephalic. EYES: No scleral icterus. No injection or drainage. NECK: Supple, trachea midline. No JVD or lymphadenopathy. CARDIOVASCULAR: Regular rate and rhythm without murmurs, gallops, or rubs. RESPIRATORY: Breath sounds equal bilaterally. No accessory muscle use. GASTROINTESTINAL: Abdomen soft, non-tender, nondistended. MUSCULOSKELETAL: No cyanosis, or edema. BACK: Nontender without obvious deformity. No CVA tenderness. A/P: - Gastric outlet obstruction - s/p EGD with dilatation. Patient may need Gastric emptying study in the outpatient setting. - Asthma - continue Advair upon discharge. - CAD - no acute issues. Patient is being discharged today with outpatient follow up with PCP, NATHAN. Nacho Conner Mar 30, 2017 13:52 Lovely Castillo DO Mar 30, 2017 17:51
[2017-03-30] MEDS ORDERED: PROPOFOL 200 MG/20 ML AMP ONE (14:24)
--- NOTE | 2017-03-30 14:44 | PD.PROCEDR ---
GI Procedure PROCEDURE PERFORMED Upper endoscopy with biopsy, dilation of esophageal stricture INDICATION FOR PROCEDURE Abdominal pain, nausea vomiting, questionable gastric outlet obstruction PROCEDURE: The procedure, risks and benefits were discussed with Ms. Qureshi and informed consent was obtained. Anesthesia sedated her with Diprivan. She was placed in the left lateral decubitus position. EGD: The Pentax videoscope was introduced through the oropharynx and advanced to the second portion of the duodenum under direct visualization. Retroflexion was performed in the stomach. Biopsy from the antrum for gastritis, ulcer in the proximal stomach body possible Ang ulcer very deep and large biopsy was done , esophageal stricture status post dilation with savory guidewire size 17 mm ESTIMATED BLOOD LOSS: None SPECIMENS REMOVED: Gastric ulcer Antrum for gastritis COMPLICATIONS: None IMPRESSION: FINDINGS: Esophageal stricture status post dilation size 17 mm Small hiatal hernia Gastritis severe biopsy was done from the antrum Large ulcer in the proximal stomach possible Ang ulcer biopsy was done No gastric outlet obstruction PLAN: Clear liquid advance as tolerated PPI for the ulcer Dilation as needed Follow-up biopsy Repeat upper endoscopy in two-months Return to clinic in 1 month Eduardo Jacobo MD Mar 30, 2017 14:44
--- NOTE | 2017-03-30 14:48 | HHI.GIFU ---
Subjective Remarks Patient is alert oriented laying in bed seems to be comfortable NGT tube out, no nausea no vomiting no new complaints Objective Vitals I&O Vital Signs Date Time Temp Pulse Resp B/P (MAP) Pulse Ox O2 Delivery O2 Flow Rate FiO2 03/30/17 14:15 97.8 70 18 126/58 (80) 95 03/30/17 12:00 97.8 70 18 126/58 (80) 95 03/30/17 08:00 97.1 75 18 157/67 (97) 95 03/30/17 07:43 96 21 03/30/17 00:00 96.8 63 20 152/71 (98) 95 03/29/17 20:26 96 21 03/29/17 20:00 96.1 62 20 127/62 (83) 94 03/29/17 16:00 96.9 67 15 142/73 (96) 93 I/O 03/29/17 03/29/17 03/29/17 03/30/17 03/30/17 03/30/17 07:00 15:00 23:00 07:00 15:00 23:00 Intake Total 1099 ml 775 ml 90 ml 944 ml Balance 1099 ml 775 ml 90 ml 944 ml Intake Oral 90 ml 90 ml 120 ml IV Total 1099 ml 685 ml 824 ml # Voids 5 0 4 # Bowel Movements 0 0 Physical Exam HEENT: Pupils round and reactive to light; normocephalic; atraumatic; no jaundice. Throat is clear. NECK: Neck is supple, no JVD, no lymphadenopathy. CHEST: Chest is clear to auscultation and percussion. CARDIAC: Regular rate and rhythm with no murmur gallop or rubs. ABDOMEN: Soft, nondistended, nontender; no hepatosplenomegaly; bowel sounds are present in all four quadrants. EXTREMITIES: No clubbing, cyanosis, or edema. SKIN: Normal; no rash; no jaundice. MULTIMEDIA ASSISTANT: No focal deficits; alert and oriented times three. Assessment and Plan Plan Possible gastric outlet obstruction, patient has NG tube which is been clamped since 8:00 this morning without any acute nausea or vomiting. Possible resolving , 03/29/17, abd xrays show no obstruction now, Abdominal pain, improved over the past 24 hours, abdomen is benign to exam, but initially noted epigastric pain Possible gastroparesis, patient has history of bowel obstruction with colectomy with reversal colostomy, which could contribute to some of her symptoms. Possible adhesions or slowing of the colon could be complications. Nausea and vomiting, initially uncontrolled on admission now none noted. NG tube clamped since 08 100 without nausea vomiting or output. Possible gastritis, etiology unknown possible secondary to previous history of nausea and vomiting. 03/30/2017 patient came complaining of abdominal pain, nausea vomiting, she is doing better now no symptom had an upper endoscopy today IMPRESSION: FINDINGS: Esophageal stricture status post dilation size 17 mm Small hiatal hernia Gastritis severe biopsy was done from the antrum Large ulcer in the proximal stomach possible Ang ulcer biopsy was done No gastric outlet obstruction PLAN: Clear liquid advance as tolerated PPI for the ulcer Dilation as needed Follow-up biopsy Repeat upper endoscopy in two-months Return to clinic in 1 month Eduardo Jacobo MD Mar 30, 2017 14:48
[2017-03-30] MEDS ORDERED: PRIL20TA2 PO (15:39)
--- NOTE | 2017-03-30 15:40 | HHI.DCPOC ---
Discharge Care Plan Diagnosis: (1) Abdominal pain (2) Gastric outlet obstruction Goals to Promote Your Health * To prevent worsening of your condition and complications * To maintain your health at the optimal level Directions to Meet Your Goals Take your medications as prescribed Follow your dietary instruction Follow activity as directed Keep your appointments as scheduled Take your immunizations and boosters as scheduled If your symptoms worsen call your PCP, if no PCP go to Urgent Care Center or Emergency Room Smoking is Dangerous to Your Health. Avoid second hand smoke Call the 24-hour hour crisis hotline for domestic abuse at Nacho Conner Mar 30, 2017 15:40
--- NOTE | 2017-03-30 15:53 | HHI.DS ---
Discharge Summary Admission Date Mar 28, 2017 at 15:20 Discharge Date: Mar 30, 2017 Admitting Diagnosis Gastric outlet obstruction, abdominal pain (1) Abdominal pain ICD Code: R10.9 - Unspecified abdominal pain Status: Acute (2) CAD (coronary artery disease) ICD Code: I25.10 - Atherosclerotic heart disease of [place] coronary artery without angina pectoris (3) Asthma ICD Code: J45.909 - Unspecified asthma, uncomplicated Procedures EGD was performed which did show esophageal stricture with dilatation to 17 mm. Severe gastritis, large ulcer in proximal stomach. No gastric outlet obstruction Brief History - From Admission Ms. Qureshi is a 56-year-old female patient with a known medical history of asthma , history of colectomy and reverse colostomy who presented to the ED with complaints of abdominal pain. Patient states that the pain started roughly 4 days ago that was located in her epigastric area, severity was 8/10, with associated nausea and vomiting. Does admit to subjective fevers and chills. Last BM was 1 week ago. States she suffers from chronic constipation. Denies any recent diarrhea. Denies any hematochezia. Does follow with Dr. Pérez, has previously underwent a colectomy and reverse colostomy due to Sterkal ulcer. Does not have a molasses preparer she follows with. CT abdomen was performed in the ED showing distended stomach. General surgery and GI have been consulted , appreciate input. CBC/BMP: 03/29/17 0550 03/29/17 0550 Significant Findings Laboratory Tests Test 03/28/17 12:50 03/28/17 14:25 03/29/17 05:50 Platelet Count 127 TH/MM3 (150-450) 92 TH/MM3 (150-450) Monocytes (%) (Auto) 8.1 % (0.0-8.0) 8.9 % (0.0-8.0) Eosinophils (%) (Auto) 5.8 % (0.0-4.0) 5.1 % (0.0-4.0) Albumin 3.3 GM/DL (3.4-5.0) Estimat Glomerular Filtration Rate 71 ML/MIN (>89) Lipase 513 U/L (73-393) Urine Squamous Epithelial Cells > 8 /hpf (0-5) Calcium Level 7.8 MG/DL (8.5-10.1) Chloride Level 111 MEQ/L (98-107) Imaging Last Impressions Abdomen X-Ray 03/29/17 0600 Signed Impressions: Service Date/Time: Wednesday, March 29, 2017 06:15 - CONCLUSION: 1. Contrast is now noted in the colon excluding complete or high-grade small bowel obstruction. 2. No evidence of free air. Status post cholecystectomy. 3. Nelson Cantor MD Abdomen/Pelvis CT 03/28/17 1243 Signed Impressions: Service Date/Time: Tuesday, March 28, 2017 13:55 - CONCLUSION: 1. Moderately distended fluid-filled J-shaped stomach without definitive CT evidence for significant focal mass. Ingested oral contrast does extend to the distal small bowel. Differential considerations include gastroparesis versus partial gastric outlet obstruction. 2. Moderate to severe mixed distal aortic plaque with resultant moderate to severe distal aortic stenosis. Iliac arteries are very small in caliber bilaterally. 3. Otherwise, no acute CT abnormality or significant interval change from prior exam. Stable ancillary findings, as above. Maldonado Zambrano MD Chest X-Ray 03/28/17 0000 Signed Impressions: Service Date/Time: Tuesday, March 28, 2017 15:43 - CONCLUSION: 1. NGT in the stomach. 2. Changes of obstructive pulmonary disease without acute abnormality. Maldonado Zambrano MD PE at Discharge GENERAL: Well-developed, well-nourished, in no acute distress. alert and orientated HEENT: Head is normocephalic without any lesions or masses noted. Facial features are symmetric. Eyes: Extraocular muscles are intact. Conjunctivae were clear. NECK: Supple without any masses. Trachea midline no deviation. No JVD CARDIAC: Regular rhythm, regular rate. S1/S2 are heard. No murmurs gallops or rubs. LUNGS: Clear to auscultation bilaterally. No wheeze, rhonchi or rales. No use of accessory muscles on inspiration or expiration. ABDOMEN: Soft, nontender. Nondistended. Bowel sounds heard in all 4 quadrants. No organomegaly or masses. Negative rebound, negative guarding. Patient does have a mid abdominal scar EXTREMITIES: No edema, pulses are equal bilaterally. No cyanosis or clubbing NEUROLOGY: Mood and affect appear appropriate. Cranial nerves II through XII grossly intact. Moving all extremities, speech is clear Hospital Course 56-year-old female who originally presented to hospital on 03/28/17 because of upper abdominal pain in her epigastric region which was 8/10 on a pain scale with associated nausea vomiting. Patient had workup done in emergency department had mildly elevated lipase level. However CT scan was performed which did not indicate any pancreatitis. It did indicate dilated J Strait stomach with possible gastric outlet obstruction. ER physician discussed the case with colorectal surgeon. Patient was admitted with general surgery consultation and subsequently GI consultation. Patient did undergo endoscopy which does indicate very large gastric ulcer. Patient did have esophageal stricture with dilatation. However there is no gastric outlet obstruction. Patient is very hungry and wants to eat. Her pain has significantly improved. Discussed with molasses preparer who indicated that patient may have outpatient gastric acting study performed if she continues to have discomfort and pain. Patient is quite stable at this time. She is eager to go home. Patient is clinically stable plan discharge accordingly. Pt Condition on Discharge: Stable Discharge Disposition: Discharge Home Discharge Time: > 30 minutes Discharge Instructions DIET: Follow Instructions for: Heart Healthy Diet Activities you can perform: Regular-No Restrictions Activities to Avoid: Driving for 24 hrs Follow up Referrals: Gastroenterology - 2 Weeks PCP Follow-up - 1 Week New Medications: Omeprazole Magnesium (Prilosec) 20 Mg Tab 20 MG PO DAILY for gastric ulcer, #30 CAP Continued Medications: Albuterol 18 GM Inh (Ventolin Hfa 18 GM Inh) 90 Mcg/Act Aer 1 PUFF INH Q4H PRN for SHORTNESS OF BREATH, #1 INHALER 0 Refills Alendronate (Fosamax) 70 Mg Tab Unknown Dose PO Q7D for Osteoporosis Treatment, #4 TAB 0 Refills Carvedilol (Carvedilol) 3.125 Mg Tab Unknown Dose PO BID, #60 TAB 0 Refills Fluticasone-Salmeterol Inh (Advair Diskus Inh) 100-50 Mcg/Blist Aer 1 PUFF INH BID for Asthma Management, #1 INHALER 0 Refills Rinse mouth after use. Ipratropium-Albuterol Neb (Duoneb) 0.5-2.5 Mg/3 Ml Neb 1 NEBULE INH DAILY for Breathing Treatment, #30 NEBULE 0 Refills Lisinopril (Lisinopril) 20 Mg Tab 20 MG PO DAILY, #30 TAB 0 Refills Promethazine (Promethazine) 12.5 Mg Tab 12.5 MG PO Q4H PRN for NAUSEA OR VOMITING, TAB 0 Refills Tramadol (Tramadol) 50 Mg Tab 50 MG PO DAILY, TAB 0 Refills Nacho Conner Mar 30, 2017 15:53 Lovely Castillo DO Mar 30, 2017 17:52
--- NOTE | 2017-03-30 16:31 | EKG ---
Date Performed: 03/30/2017 Time Performed: 09:24:07 PTAGE: 56 years EKG: Sinus rhythm WITH SHORT MD INTERVAL When compared to previous tracing, the patient is over riding the Pacemaker, no longer evidence of atrial pacing. BORDERLINE ECG PREVIOUS TRACING : 06/09/2012 12.45 DOCTOR: Estrella Wilkinson Interpretating Date/Time 03/30/2017 16:31:00
[2017-03-30 18:00] VITALS: BP 130/62; PULSE 73; RESP 18; TEMP 97.7; O2SAT 98
== END 2017-03-30 18:47 | disposition home or self-care (01) | DRG 384 ==
LOC: PHED 12:11 → PHEDA 15:20 → PH3B 16:39
PROVIDERS: ADMIT Hospitalist; ATTEND Hospitalist
PROC: 0D758ZZ Dilation of Esophagus, Via Natural or Artificial Opening Endoscopic (ICD-10-PCS; principal; 2017-03-28)
PROC: 0DB68ZX Excision of Stomach, Via Natural or Artificial Opening Endoscopic, Diagnostic (ICD-10-PCS; 2017-03-28)
PROC: 0DB78ZX Excision of Stomach, Pylorus, Via Natural or Artificial Opening Endoscopic, Diagnostic (ICD-10-PCS; 2017-03-28)
DX: K25.9 Gastric ulcer, unspecified as acute or chronic, without hemorrhage or perforation (principal); R64 Cachexia; Z68.1 Body mass index [BMI] 19.9 or less, adult; K22.2 Esophageal obstruction; K29.70 Gastritis, unspecified, without bleeding; K44.9 Diaphragmatic hernia without obstruction or gangrene; J44.9 Chronic obstructive pulmonary disease, unspecified; G47.00 Insomnia, unspecified; I25.10 Atherosclerotic heart disease of native coronary artery without angina pectoris; K21.9 Gastro-esophageal reflux disease without esophagitis; G47.30 Sleep apnea, unspecified; I35.0 Nonrheumatic aortic (valve) stenosis; K59.09 Other constipation; Z95.5 Presence of coronary angioplasty implant and graft; Z87.891 Personal history of nicotine dependence; Z95.810 Presence of automatic (implantable) cardiac defibrillator
CPT/HCPCS: 43753; 71010; 74000; 74177; 80048; 80053; 81001; 83690; 85025; 88305; 93005; 94640; 94664; 96374; 96375; 96376; C1769; C9113; J2270; J2405; J7030; Q9963; Q9967